=== PATIENT | male | born 1930 | race Caucasian/White ===

== ENCOUNTER 2018-01-11 23:36 | Observation (INO) ==
[2018-01-11] MEDS ORDERED: Naloxone 0.4 MG/ML INJ IVP ONE (23:44)
[2018-01-11] MEDS ORDERED: 0.9 % Sodium Chloride 1,000 ML IVC ONE (23:44)
--- NOTE | 2018-01-11 23:47 | Emergency Department Note ---
Disposition Clinical Impression: Elevated troponin I level Accidental overdose Qualifiers: Encounter type: initial encounter Qualified Code(s): T50.901A - Poisoning by unspecified drugs, medicaments and biological substances, accidental ( unintentional), initial encounter Altered mental status Qualifiers: Altered mental status type: somnolence Qualified Code(s): R40.0 - Somnolence CKD (chronic kidney disease) Qualifiers: Chronic kidney disease stage: stage 3 (moderate) Qualified Code(s): N18.3 - Chronic kidney disease, stage 3 (moderate) Bladder cancer Qualifiers: Bladder location: unspecified site Qualified Code(s): C67.9 - Malignant neoplasm of bladder, unspecified Atrial flutter Qualifiers: Atrial flutter type: typical Qualified Code(s): I48.3 - Typical atrial flutter Disposition: Admitted As Inpatient Condition: Fair Referrals: Simona Ahn MD [Non-Partnered Physician] - Forms: ED Satisfaction Letter Altered Mental Status HPI - General Chief Complaint: ED Altered Mental Status Stated Complaint: Altered mental status Time Seen by Provider: 01/11/18 23:44 Source: patient, family, EMS Mode of arrival: EMS Limitations: physical limitation Nursing Notes Reviewed: Yes Vital Signs Reviewed: Yes - History of Present Illness HPI Narrative: Patient arrives by EMS with a concern for impending sluggish, sleepy and possibly taken too much of his tramadol. He does have history of a bladder cancer with back pain. He states his pain is in the "bottom side", is constant and has been going on for "several days". He does take tramadol for this pain and he had a prescription filled on . The family does but these pills in the pill minder but they noted that there were pills missing from the bottle as well. Patient does not recall taking any extra medication. He denies headache, visual changes, fevers, chills, chest pain or shortness of breath. He denies nausea, vomiting, diarrhea or constipation. He denies any localizing extremity numbness, tingling or weakness. He is alert and oriented and easily able to tell us it is Wednesday, give his name and his social security number. He is, however, sluggish, sleepy, mildly hypotensive and running saturations of 88-92%. He is not on home oxygen. MD complaint: altered mental status, confusion, weakness Onset (ago): day(s) Timing confirmed by: family member Pain Severity: mild, moderate Consistency of Symptoms: constant Context: cancer Associated symptoms: Reports: malaise, weakness. Denies: chest pain, cough, diaphoresis, fever, chills, headaches, loss of appetite, nausea/vomiting, rash, seizure, shortness of breath, syncope, foul smelling urine, diarrhea, incontinence - Related Data Home Medications Medication Instructions Recorded Confirmed Alpha Lipoic Acid 600 mg PO DAILY 07/14/16 01/06/18 B Complex with Vitamin C [Vitamin 1 each PO DAILY 07/14/16 01/06/18 B-Complex & C] Cranberry Fruit Extract [Cranberry] 500 mg PO DAILY 07/14/16 01/06/18 Cyanocobalamin (Vitamin B-12) 5,000 mcg SL DAILY 07/14/16 01/06/18 [Vitamin B-12] Gabapentin [Neurontin] 300 mg PO HS 07/14/16 01/06/18 Garlic 1,000 mg PO DAILY 07/14/16 01/06/18 Ginkgo Biloba 60 mg PO DAILY 07/14/16 01/06/18 Gluc Patino/MSM/Magnesium/Vit C 2 each PO DAILY 07/14/16 01/06/18 [Glucosamine Complex-MSM Cap] Insulin Glargine,Hum.rec.anlog 45 unit SQ HS 07/14/16 01/06/18 [Lantus Solostar] Insulin LISPRO [Humalog] 35 - 40 unit SQ TID 07/14/16 01/06/18 Metoprolol XL (24 HR) Succ [Toprol 37.5 mg PO BID 07/14/16 01/06/18 Xl] Nortriptyline [Pamelor] 25 mg PO HS 07/14/16 01/06/18 Tumeric-Curcumin Complex 1 tab PO DAILY 07/14/16 01/06/18 Vit C/E/Zn/Coppr/Lutein/Zeaxan 2 cap PO DAILY 07/14/16 01/06/18 [Preservision Areds 2 Softgel] Atorvastatin Calcium [Lipitor] 80 mg PO HS 08/11/16 01/06/18 Multivit-Min/Iron Fum/Folic AC 1 each PO DAILY 08/11/16 01/06/18 [Lckfg-Cihgden-Uzjrxxyx Tablet] Enalapril Maleate [Vasotec] 10 mg PO DAILY 11/13/16 01/06/18 Fenofibrate [Lofibra] 160 mg PO DAILY 11/13/16 01/06/18 Ranitidine HCl [Heartburn Relief] 150 mg PO DAILY 11/13/16 01/06/18 Levothyroxine [Levothyroxine 137 mcg PO DAILY@0630 01/22/17 01/06/18 Sodium] Lutein/Zeaxanthin 1 each PO DAILY 01/22/17 01/06/18 [Lutein-Zeaxanthin 25-5 mg Sfgl] Apixaban [Eliquis] 2.5 mg PO BID 07/23/17 01/06/18 Bumetanide [Bumex] 0.5 mg PO DAILY 07/23/17 01/06/18 Acetaminophen [Tylenol Arthritis] 650 mg PO BID 12/07/17 01/06/18 Folic Acid 1 mg PO DAILY 12/07/17 01/06/18 Previous Rx's Medication Instructions Recorded Loperamide [Imodium] 2 mg PO BID PRN #60 capsule 10/16/16 Allergies Allergy/AdvReac Type Severity Reaction Status Date / Time No Known Allergies Allergy Verified 12/19/17 21:47 All systems ED: reviewed and negative except as stated. Past Medical History - Past Medical History Attestation: Yes The following information was validated with the patient. Source: patient, old records reviewed, obtained from family, nursing notes reviewed Medical history: Reports: cancer (Bladder), diabetes, GERD, hyperlipidemia, hypertension, renal disease (CKD - follows with Dr. Agrawal, stage III), thyroid disease, valvular heart disease (Aortic valve replacement on anticoagulation), other (Hard of hearing) Surgical history: Reports: carotid endarterectomy, knee replacement (Bilateral) , orthopedic, other (Back surgery), prostatectomy, vascular surgery (Aortic valve replacement), other (Ureteral stent him a port right upper chest) Psychiatric history: Reports: no psych history - Social History Smoking Status: Never smoker Smokeless Tobacco Status: No Alcohol use: Reports: none Drug use: Reports: none Physical Exam - General Limitations: altered mental status (Sleepy and sluggish.) General appearance: in no apparent distress - Head Head exam: atraumatic, normocephalic, normal inspection - Eye Eye exam: Present: normal appearance, PERRL, EOMI. Absent: scleral icterus, conjunctival injection - ENT ENT exam: normal exam, normal oropharynx, mucous membranes moist - Neck Neck exam: Present: normal inspection, full ROM, trachea midline - Chest Chest inspection: Present: normal inspection, symmetric chest wall rise. Absent : tenderness - Respiratory Respiratory exam: Present: normal lung sounds bilaterally. Absent: respiratory distress, wheezes, prolonged expiratory phase - Cardiovascular Cardiovascular exam: Present: regular rate, normal rhythm, normal heart sounds. Absent: tachycardia - Abdominal Exam Abdominal exam: Present: soft, Non-Tender, normal bowel sounds. Absent: tenderness, distention, guarding, rebound, rigidity - Extremities Exam Extremities exam: Present: normal inspection, full ROM, normal capillary refill. Absent: tenderness, pedal edema - Expanded Lower Extremity Exam Neurovascular/Tendon exam: Present: normal capillary refill. Absent: motor deficit, sensory deficit, tendon deficit Gait: not tested/not observed - Neurological Exam Neurological exam: Present: oriented X3, CN II-XII intact. Absent: alert ( Sleepy), motor sensory deficit - Psychiatric Psychiatric exam: Present: normal mood, flat affect - Skin Skin exam: Present: warm, dry, intact, pallor. Absent: cyanosis, diaphoresis Course Course Narrative: 0020: The patient is alert, smiling and chatting with family after administration of 0.4 mg of Narcan. Family has advised that they were administering his medications to him one half of a 50mg tablet of tramadol at a time because it made him very sleepy. With the bottle being empty they are concerned he could have taken as many as 28 tramadol today. 0055: Patient's presentation and response to treatment have been discussed with Dr. Jean. He is agreeable with observing the patient for the night with continued IV fluids, when necessary Narcan and a repeat troponin in the morning. The family has figured out that his evening medications are still in the dispenser he uses. It appears that he accidentally opened his tramadol bottle and took them instead of his evening medicines. Vital Signs Temperature 97.2 F L 01/11/18 23:45 Pulse Rate 74 01/11/18 23:45 Respiratory Rate 16 01/11/18 23:45 Blood Pressure 90/45 01/11/18 23:45 O2 Sat by Pulse Oximetry 97 01/11/18 23:45 Temperature 97.2 F L 01/11/18 23:45 Pulse Rate 74 01/11/18 23:45 Respiratory Rate 16 01/11/18 23:45 Blood Pressure 90/45 01/11/18 23:45 O2 Sat by Pulse Oximetry 97 01/11/18 23:45 Oxygen Delivery Oxygen Delivery Nasal Cannula Altered Mental Status - Differential Diagnosis Likely: altered mental status, hypoglycemia, hyponatremia, substance use - Medical Records Medical records reviewed: Yes I reviewed the patient's medical records. - Lab Data Lab results reviewed: Yes I reviewed the patient's lab results. Result diagrams: 01/12/18 00:10 01/12/18 00:10 Lab Results 01/12/18 01/12/18 01/12/18 Range/Units 00:10 00:10 00:10 WBC 6.8 (4.3-11.1) K/mcL RBC 2.75 L (4.19-5.50) M/mcL Hgb 9.7 L D (12.9-16.9) g/dL Hct 29.7 L (37.5-50.1) % MCV 108.0 H (83.0-100.0) fL MCH 35.3 H (28.0-33.3) pg MCHC 32.7 (31.6-35.5) g/dL RDW 15.9 H (11.5-14.5) % Plt Count 332 (140-400) K/mcL MPV 9.7 (9.4-12.4) fL Immature Gran % 0.4 (0-4) % Seg Neutrophils % 72.6 % Lymphocytes % 14.1 % Monocytes % 11.3 % Eosinophils % 1.2 % Basophils % 0.4 % Neutrophils # 4.9 (1.6-8.9) K/mcL Lymphocytes # 1.0 (0.6-4.6) K/mcL Monocytes # 0.8 (0.0-1.3) K/mcL Eosinophils # 0.1 (0.0-0.6) K/mcL Basophils # 0.0 (0.0-0.2) K/mcL PT 14.9 H (9.4-12.1) Seconds INR 1.4 APTT 33.9 (26.0-36.0) Seconds Sodium 131 L (136-145) mEq/L Potassium 5.1 (3.5-5.1) mEq/L Chloride 98 (98-107) mEq/L Carbon Dioxide 27 (23-29) mEq/L BUN 84 H (8-23) mg/dL Creatinine 2.08 H (0.70-1.30) mg/dL Est GFR ( Amer) 37 L (> 60) Est GFR (Non-Af Amer) 31 L (> 60) BUN/Creatinine Ratio 40 H (6-26) Glucose 176 H (70-105) mg/dL Calculated Osmolality 302 H (280-300) Calcium 9.0 (8.6-10.3) mg/dL Total Bilirubin 0.4 (0.3-1.0) mg/dL Direct Bilirubin 0.1 (0.0-0.2) mg/dL Indirect Bilirubin 0.3 (0.0-1.2) mg/dL AST 64 H (13-39) Units/L ALT 47 (7-52) Units/L Alkaline Phosphatase 45 (34-104) Units/L Troponin I 0.06 H* (< 0.04) ng/mL Serum Total Protein 7.0 (6.4-8.9) g/dL Albumin 3.0 L (3.5-5.7) g/dL Globulin 4.0 H (2.4-3.5) g/dL Albumin/Globulin Ratio 0.8 L (1.1-2.2) Ethyl Alcohol < 10 H (Less than 10) mg/dL - Radiology Data Radiology results reviewed: Yes I reviewed the patient's radiology results. Single view chest x-ray is performed. This does not demonstrate evidence for infiltrate, effusion, pneumothorax, foreign body or heart failure. The cardiac silhouette is normal. I do not see abnormality to the osseous structures of the chest. This is on my interpretation. Impressions Chest X-Ray 01/11/18 23:44 IMPRESSION: No acute cardiopulmonary abnormality. D/ / Nabor Osborne / Nabor Osborne Interpreting Provider: Nabor Osborne - EKG Data EKG attestation: Yes I reviewed and interpreted this EKG. EKG results narrative: EKG demonstrates an atrial flutter with 4-1 block. Patient is a heart rate of 68, axis of 0, [place] interval of 144 the QT/QTC 399/416. Patient has a poor R- wave progression. He appears to have an intraventricular conduction delay. I do not see evidence for acute ischemia or infarction. This is on my interpretation. Rhythm: A. flutter Interpretation: unchanged when compared to prior tracing (date) (12/19/2017.) TPA Checklist - LKW: 3-4.5 hrs Add. Warnings/Precautions Patient/family understanding: The patient/family members have been counseled and understood the risk, benefit , and alternatives of treatment.
[2018-01-12 00:17] LABS: Basophils % 0.4 %; Eosinophils # 0.1 K/mcL (0.0-0.6); Eosinophils % 1.2 %; Hematocrit 29.7 % (37.5-50.1); Hemoglobin 9.7 g/dL (12.9-16.9); Immature Granulocytes % 0.4 % (0-4); Lymphocytes % 14.1 %; Mean Corpuscular HGB Conc 32.7 g/dL (31.6-35.5); Mean Corpuscular Hemoglobin 35.3 pg (28.0-33.3); Mean Platelet Volume 9.7 fL (9.4-12.4); Monocytes # 0.8 K/mcL (0.0-1.3); Monocytes % 11.3 %; Neutrophils # 4.9 K/mcL (1.6-8.9); Platelet Count 332 K/mcL (140-400); Red Blood Count 2.75 M/mcL (4.19-5.50); Red Cell Distribution Width 15.9 % (11.5-14.5); Segmented Neutrophils % 72.6 %
[2018-01-12 00:23] LABS: INR 1.4; Prothrombin Time 14.9 Seconds (9.4-12.1)
[2018-01-12 00:28] LABS: Activated Partial Thrombo Time 33.9 Seconds (26.0-36.0)
[2018-01-12 00:36] LABS: Alanine Aminotransferase 47 Units/L (7-52); Albumin/Globulin Ratio 0.8 (1.1-2.2); Alkaline Phosphatase 45 Units/L (34-104); Aspartate Amino Transferase 64 Units/L (13-39); BUN/Creatinine Ratio 40 (6-26); Bilirubin,Direct 0.1 mg/dL (0.0-0.2); Bilirubin,Indirect 0.3 mg/dL (0.0-1.2); Bilirubin,Total 0.4 mg/dL (0.3-1.0); Blood Urea Nitrogen 84 mg/dL (8-23); Carbon Dioxide 27 mEq/L (23-29); Chloride 98 mEq/L (98-107); Ethanol < 10 mg/dL (Less than 10); Glucose 176 mg/dL (70-105); Osmolality,Calculated 302 (280-300); Potassium 5.1 mEq/L (3.5-5.1); Sodium 131 mEq/L (136-145); eGFR For African Americans 37 (> 60); eGFR For Non-African Americans 31 (> 60)
[2018-01-12 00:39] LABS: Troponin I 0.06 ng/mL (< 0.04)
[2018-01-12] MEDS ORDERED: D5% in Water 1,000 ML IVC PRN (01:52)
[2018-01-12] MEDS ORDERED: 0.9 % Sodium Chloride 1,000 ML IVC SCH (01:52)
[2018-01-12] MEDS ORDERED: Dextrose Gel 15 GM PO PRN ×2 (01:52)
[2018-01-12] MEDS ORDERED: Naloxone 0.4 MG/ML INJ IVP PRN (01:52)
[2018-01-12] MEDS ORDERED: *HR* Dextrose 50 % in Water (Syg) 50 ML SYRINGE IVP PRN (01:52)
[2018-01-12] MEDS: Insulin LISPRO 300 UNITS/3 ML VIAL SQ SCH ×3 (08:11→16:59)
[2018-01-12 12:08] LABS: Basophils % 0.5 %; Eosinophils # 0.1 K/mcL (0.0-0.6); Eosinophils % 1.8 %; Hematocrit 29.8 % (37.5-50.1); Hemoglobin 9.4 g/dL (12.9-16.9); Immature Granulocytes % 0.6 % (0-4); Lymphocytes # 1.3 K/mcL (0.6-4.6); Lymphocytes % 19.8 %; Mean Corpuscular HGB Conc 31.5 g/dL (31.6-35.5); Mean Corpuscular Hemoglobin 35.6 pg (28.0-33.3); Mean Corpuscular Volume 112.9 fL (83.0-100.0); Mean Platelet Volume 9.4 fL (9.4-12.4); Monocytes # 0.8 K/mcL (0.0-1.3); Monocytes % 11.6 %; Neutrophils # 4.3 K/mcL (1.6-8.9); Platelet Count 288 K/mcL (140-400); Red Blood Count 2.64 M/mcL (4.19-5.50); Red Cell Distribution Width 15.9 % (11.5-14.5); Segmented Neutrophils % 65.7 %
[2018-01-12 12:21] LABS: Calcium 8.6 mg/dL (8.6-10.3)
--- NOTE | 2018-01-12 12:35 | Internal Med History&Physical ---
Date of Encounter: 01/12/18 Time of Encounter: 12:00 Assessment and Plan (1) Accidental overdose Current visit: Yes Status: Acute He received Narcan in emergency room. ABG will be ordered to assess his respiratory status. Qualifiers: Encounter type: initial encounter Qualified Code(s): T50.901A - Poisoning by unspecified drugs, medicaments and biological substances, accidental ( unintentional), initial encounter (2) Anemia Current visit: Yes Status: Acute Acute on chronic. No anemia testing is recorded in archived labs. Qualifiers: Anemia type: unspecified type Qualified Code(s): D64.9 - Anemia, unspecified (3) CKD (chronic kidney disease) Current visit: Yes Status: Acute Now with acute worsening of underlying chronic kidney disease stage III. We will give IV fluids and hold Bumex and enalapril. Qualifiers: Chronic kidney disease stage: stage 3 (moderate) Qualified Code(s): N18.3 - Chronic kidney disease, stage 3 (moderate) (4) Hypertension Current visit: Yes Status: Chronic Will hold cardiovascular medication since he has hypotension. We will give IV fluids and monitor. Qualifiers: Hypertension type: essential hypertension Qualified Code(s): I10 - Essential (primary) hypertension (5) Atrial flutter Current visit: Yes Status: Acute Family reports he is on Eliquis at home. This is not on his home medication list. Qualifiers: Atrial flutter type: typical Qualified Code(s): I48.3 - Typical atrial flutter Internal Medicine - H&P: HPI Chief complaint: Possible overdose Admitted From: Emergency Dept Plans for Post Hospital Care: Home History of present illness: Mr. Walton is a 87 year old male who was noted by family to be lethargic approximate 9 PM the evening of admission. His found his tramadol bottle empty and believes he took between 20 and 30 of his 50 mg pills. The squad was called and he was brought to emergency room and evaluated. He received Narcan and [facility]. His family supplies a history since he is obtunded. Family members state they believe he was simply confused and the ingestion was accidental. He has had no previous suicidal ideations or expressed feelings of depression. He does not take antidepressant medications. There is no other mental health history. Past Med Surg Social Fam HX - Past Medical History Medical history: cancer, diabetes, GERD, hyperlipidemia, hypertension, renal disease, thyroid disease, valvular heart disease, other Psychiatric history: no psych history - Past Surgical History Surgical History: carotid endarterectomy, knee replacement, orthopedic, other, prostatectomy, vascular surgery, other - Social History Smoking Status: Never smoker Smokeless Tobacco Status: No Alcohol use: none Drug use: none - Family History Brother Living Status: Hx Family Cardiac Disorders: Yes Internal Medicine - H&P: Meds Alpha Lipoic Acid 600 mg PO DAILY 07/14/16 [History] B Complex with Vitamin C [Vitamin B-Complex & C] 1 each PO DAILY 07/14/16 [ History] Cranberry Fruit Extract [Cranberry] 500 mg PO DAILY 07/14/16 [History] Cyanocobalamin (Vitamin B-12) [Vitamin B-12] 5,000 mcg SL DAILY 07/14/16 [ History] Gabapentin [Neurontin] 300 mg PO HS 07/14/16 [History] Garlic 1,000 mg PO DAILY 07/14/16 [History] Ginkgo Biloba 60 mg PO DAILY 07/14/16 [History] Gluc Ptaino/MSM/Magnesium/Vit C [Glucosamine Complex-MSM Cap] 2 each PO DAILY [History] Insulin Glargine,Hum.rec.anlog [Lantus Solostar] 40 unit SQ HS 07/14/16 [History ] Insulin LISPRO [Humalog] 35 unit SQ TID 07/14/16 [History] Metoprolol XL (24 HR) Succ [Toprol Xl] 37.5 mg PO BID 07/14/16 [History] Nortriptyline [Pamelor] 25 mg PO HS 07/14/16 [History] Tumeric-Curcumin Complex 1 tab PO DAILY 07/14/16 [History] Vit C/E/Zn/Coppr/Lutein/Zeaxan [Preservision Areds 2 Softgel] 2 cap PO DAILY 04/23 [History] Atorvastatin Calcium [Lipitor] 80 mg PO HS 08/11/16 [History] Multivit-Min/Iron Fum/Folic AC [Xzygb-Mauhvbe-Quzxkzov Tablet] 1 each PO DAILY 08/11/16 [History] Loperamide [Imodium] 2 mg PO BID PRN #60 capsule 10/16/16 [Rx] Enalapril Maleate [Vasotec] 10 mg PO DAILY 11/13/16 [History] Fenofibrate [Lofibra] 160 mg PO DAILY 11/13/16 [History] Ranitidine HCl [Heartburn Relief] 150 mg PO DAILY 11/13/16 [History] Levothyroxine [Levothyroxine Sodium] 125 mcg PO DAILY@0630 01/22/17 [History] Lutein/Zeaxanthin [Lutein-Zeaxanthin 25-5 mg Sfgl] 1 each PO DAILY 01/22/17 [ History] Apixaban [Eliquis] 2.5 mg PO BID 07/23/17 [History] Bumetanide [Bumex] 2 mg PO DAILY 07/23/17 [History] Acetaminophen [Tylenol Arthritis] 650 mg PO BID 12/07/17 [History] Folic Acid 1 mg PO DAILY 12/07/17 [History] 3 Allergy/AdvReac Type Severity Reaction Status Date / Time No Known Allergies Allergy Verified 12/19/17 21:47 All Systems PM: A 10-system review of systems was performed and is negative for pertinent findings except as documented above in the HPI. Review of systems: Gen.: His weight has been stable the past few months Cardiovascular: He has paroxysmal atrial fibrillation and has been prescribed Toprol. He has hypertension. He had aortic valve replacement 2007 for aortic stenosis. There is no history of ID heart failure DVT or pulmonary embolus. Respiratory: He is a lifelong nonsmoker and has no known chronic lung disease. GI: No history of disorders of liver gallbladder or exocrine pancreas : He has chronic kidney disease stage III. He was diagnosed with bladder cancer in 2014 and had surgical resection of tumor followed by XRT. He is now on immunotherapy. He has known recurrence of bladder cancer however. Neurologic: No history of large distribution strokes or seizures. He has diabetic peripheral neuropathy. Endocrine: He was diagnosed with DM 2 approximately 1999. He has hypothyroidism and hyperlipidemia Hematology/oncology: He has bladder cancer as per above. He has had skin cancers. He has anemia. Psychiatric: As per history of present illness [place] skeletal: He has DJD but no known gout or other bone joint or muscle disorders. GI: - Constitutional Vitals: Temp Pulse Resp BP Pulse Ox 97.7 F 62 17 71/31 93 01/12/18 10:10 01/12/18 10:10 01/12/18 10:10 01/12/18 10:10 01/12/18 10:10 Exam: Gen.: He is well-developed well-nourished male lying in bed who is lethargic but awakens and follows a few commands. HEENT: Head is atraumatic and normocephalic. Eyes: EOMI. There is no scleral icterus. Mouth: Mucosa is moist. Neck: Supple and nontender. There is no thyromegaly or adenopathy noted. Heart: Regular without murmurs gallops or ectopics Lungs: No wheezes or crackles are heard. Abdomen: Soft and nontender. No masses or guarding are noted. Extremities: He has 2+ edema of his dorsum of the feet and lower legs bilaterally. Dorsalis pedis and posttibial pulses are nonpalpable. Neurologic: Mental status: He is very lethargic but arouses and attempts to follow a few commands. He cannot give any adequate history. Cranial nerves: Smile is symmetric. Forehead wrinkles bilaterally. Tongue protrudes midline. EOMI. Motor: There is no pronator drift. Cerebellar: Finger to nose maneuver is not well comprehended. No further neurologic testing is attempted. Skin: Warm and dry. Internal Med - H&P Results - Labs CBC & Chem 7: 01/12/18 12:02 01/12/18 12:02 Labs: Short CBC 01/12/18 Range/Units 12:02 WBC 6.6 (4.3-11.1) K/mcL Hgb 9.4 L (12.9-16.9) g/dL Hct 29.8 L (37.5-50.1) % Plt Count 288 (140-400) K/mcL [facility] 01/12/18 12:02 Sodium 137 Potassium 6.0 H Chloride 103 Carbon Dioxide 29 BUN 89 H Creatinine 2.61 H Glucose 98 Calcium 8.6 Cardiac Enzymes 01/12/18 Range/Units 08:30 Troponin I 0.06 H* (< 0.04) ng/mL - VTE Documentation of Mechanical Device: Graduated compression elastic hosiery
[2018-01-12 12:46] LABS: ABG Base Excess -4 mEq/L (-2 to 3); ABG HCO3 24 mEq/L (21-27); ABG Oxygen Saturation 99 % (95-98); ABG PCO2 59 mmHg (35-45); ABG PH 7.23 pH Units (7.32-7.45); ABG PO2 139 mmHg (85-104); ABG TCO2 26 mEq/L (20-26)
[2018-01-12 12:50] LABS: Anisocytosis 1+ (Not Present); Basophilic Stippling 1+ (Not Present); Hypochromasia Present (Not Present); Macrocytosis Present (Not Present)
[2018-01-12 12:51] LABS: Platelet Estimate Normal (Normal); Polychromasia 1+ (Not Present)
[2018-01-12 15:17] LABS: ABG Base Excess -1 mEq/L (-2 to 3); ABG HCO3 26 mEq/L (21-27); ABG Oxygen Saturation 97 % (95-98); ABG PCO2 51 mmHg (35-45); ABG PH 7.31 pH Units (7.32-7.45); ABG PO2 105 mmHg (85-104); ABG TCO2 27 mEq/L (20-26); Blood Gas FiO2 2.5 (1-15=lpm or21-100=%)
--- NOTE | 2018-01-12 20:11 | Electrocardiograph Report ---
[address] [place], [place] [address] Test Date: 2018-01-12 Pat Name: Constantin Walton Department: [id number] Room: [facility] Gender: M Credentialing Manager: [id number] : 1930 Requested By: Harshad Novak Order Number: [id number] Reading MD: Larry Sharma MD Measurements Intervals [place] Rate: 68 P: 78 OK: 144 QRS: 0 QRSD: 124 T: 169 QT: 399 QTc: 416 Interpretive Statements ATRIAL FLUTTER WITH VARIABLE RESPONSE ANTEROSEPTAL MYOCARDIAL INFARCTION, OF INDETERMINATE AGE LATERAL ISCHEMIA BASELINE ARTIFACT COMPLICATES ACCURATE INTERPRETATION Electronically Signed On 01-12-2018 20:10:11 EST by Larry Sharma MD
[2018-01-13 06:31] LABS: Basophils % 0.4 %; Eosinophils # 0.2 K/mcL (0.0-0.6); Eosinophils % 1.8 %; Hematocrit 29.6 % (37.5-50.1); Hemoglobin 9.6 g/dL (12.9-16.9); Immature Granulocytes % 0.6 % (0-4); Lymphocytes # 0.9 K/mcL (0.6-4.6); Lymphocytes % 11.3 %; Mean Corpuscular HGB Conc 32.4 g/dL (31.6-35.5); Mean Corpuscular Hemoglobin 35.6 pg (28.0-33.3); Mean Corpuscular Volume 109.6 fL (83.0-100.0); Mean Platelet Volume 10.2 fL (9.4-12.4); Monocytes # 0.8 K/mcL (0.0-1.3); Monocytes % 9.7 %; Neutrophils # 6.2 K/mcL (1.6-8.9); Platelet Count 308 K/mcL (140-400); Red Cell Distribution Width 15.4 % (11.5-14.5); Segmented Neutrophils % 76.2 %
[2018-01-13 06:48] LABS: Calcium 8.4 mg/dL (8.6-10.3); Magnesium 2.5 mg/dL (1.6-2.6); Potassium 5.2 mEq/L (3.5-5.1)
[2018-01-13 07:02] LABS: Thyroid Stimulating Hormone 5.004 mcIU/mL (0.340-5.600)
[2018-01-13 07:41] VITALS: BP 104/54
[2018-01-13] MEDS: Insulin LISPRO 300 UNITS/3 ML VIAL SQ SCH ×2 (08:34→11:25)
--- NOTE | 2018-01-13 09:47 | Discharge Summary ---
Orders not resulted at time of discharge: Pending orders 01/13/18 05:43 Folate AM 0400 Vitamin B12 AM 0400 Date of Encounter: 01/13/18 Time of Encounter: 09:35 - Discharge Diagnosis (1) Accidental overdose Priority: Primary Status: Resolved Qualifiers: Encounter type: initial encounter Qualified Code(s): T50.901A - Poisoning by unspecified drugs, medicaments and biological substances, accidental ( unintentional), initial encounter (2) Anemia Priority: Secondary Status: Acute Qualifiers: Anemia type: unspecified type Qualified Code(s): D64.9 - Anemia, unspecified (3) CKD (chronic kidney disease) Priority: Secondary Status: Chronic Qualifiers: Chronic kidney disease stage: stage 3 (moderate) Qualified Code(s): N18.3 - Chronic kidney disease, stage 3 (moderate) (4) Hypertension Priority: Secondary Status: Chronic Qualifiers: Hypertension type: essential hypertension Qualified Code(s): I10 - Essential (primary) hypertension (5) Atrial flutter Priority: Secondary Status: Chronic Qualifiers: Atrial flutter type: typical Qualified Code(s): I48.3 - Typical atrial flutter Hospital course: Mr. Walton is a 87 year old male who was noted by family to be lethargic approximate 9 PM the evening of admission. His found his tramadol bottle empty and believes he took between 20 and 30 of his 50 mg pills. The squad was called and he was brought to emergency room and evaluated. He received Narcan and was admitted [facility] floor for ongoing care needs. Initial orders were written by the emergency room physician. I saw him on January 12 and performed a history and physical. He received Narcan in emergency room for the tramadol overdose. An ABG was ordered after his arrival to [facility] floor and showed respiratory insufficiency. He was given additional Narcan and had immediate improvement and remained stable throughout the remainder of his hospital stay. His mental status returned to baseline. He will remain off Ultram at discharge. He had urinary retention of 500 + ml requiring insertion of Sales catheter. He will be started on Flomax and Proscar and be discharged home with a catheter with leg bag for 3 days. Home health services will be arranged and the Sales catheter will be discontinued on January 17. Family was instructed to monitor urine output for possible recurrence of urinary retention. Anemia testing showed iron 66, transferrin saturation 19%, transferrin 242, and ferritin 287. B12 and folate levels are pending at time of discharge. His PCP Dr. Andre can follow-up on this. Kayexalate was given his potassium level decreased to 5.2 by day of discharge. Creatinine was stable at 2.22 on day of discharge. On January 13 I felt he was stable for discharge home. He will follow with his PCP Dr. Andre within 1 week. - Time Spent with Patient Total time spent providing and/or coordinating discharge services: - Discharge Medications Prescriptions: Finasteride [Proscar] 5 mg PO DAILY #7 tablet Tamsulosin [Flomax] 0.4 mg PO DAILY #7 cap.er.24h Home Medications: Alpha Lipoic Acid 600 mg PO DAILY 07/14/16 [History] B Complex with Vitamin C [Vitamin B-Complex & C] 1 each PO DAILY 07/14/16 [ History] Cranberry Fruit Extract [Cranberry] 500 mg PO DAILY 07/14/16 [History] Cyanocobalamin (Vitamin B-12) [Vitamin B-12] 5,000 mcg SL DAILY 07/14/16 [ History] Gabapentin [Neurontin] 300 mg PO HS 07/14/16 [History] Garlic 1,000 mg PO DAILY 07/14/16 [History] Ginkgo Biloba 60 mg PO DAILY 07/14/16 [History] Gluc Patino/MSM/Magnesium/Vit C [Glucosamine Complex-MSM Cap] 2 each PO DAILY [History] Insulin Glargine,Hum.rec.anlog [Lantus Solostar] 40 unit SQ HS 07/14/16 [History ] Insulin LISPRO [Humalog] 35 unit SQ TID 07/14/16 [History] Metoprolol XL (24 HR) Succ [Toprol Xl] 37.5 mg PO BID 07/14/16 [History] Nortriptyline [Pamelor] 25 mg PO HS 07/14/16 [History] Tumeric-Curcumin Complex 1 tab PO DAILY 07/14/16 [History] Vit C/E/Zn/Coppr/Lutein/Zeaxan [Preservision Areds 2 Softgel] 2 cap PO DAILY 04/23 [History] Atorvastatin Calcium [Lipitor] 80 mg PO HS 08/11/16 [History] Multivit-Min/Iron Fum/Folic AC [Uaxua-Ucpctpb-Wqaoezdj Tablet] 1 each PO DAILY 08/11/16 [History] Loperamide [Imodium] 2 mg PO BID PRN #60 capsule 10/16/16 [Rx] Enalapril Maleate [Vasotec] 10 mg PO DAILY 11/13/16 [History] Fenofibrate [Lofibra] 160 mg PO DAILY 11/13/16 [History] Ranitidine HCl [Heartburn Relief] 150 mg PO DAILY 11/13/16 [History] Levothyroxine [Levothyroxine Sodium] 125 mcg PO DAILY@0630 01/22/17 [History] Lutein/Zeaxanthin [Lutein-Zeaxanthin 25-5 mg Sfgl] 1 each PO DAILY 01/22/17 [ History] Apixaban [Eliquis] 2.5 mg PO BID 07/23/17 [History] Bumetanide [Bumex] 2 mg PO DAILY 07/23/17 [History] Acetaminophen [Tylenol Arthritis] 650 mg PO BID 12/07/17 [History] Folic Acid 1 mg PO DAILY 12/07/17 [History] Finasteride [Proscar] 5 mg PO DAILY #7 tablet 01/13/18 [Rx] Tamsulosin [Flomax] 0.4 mg PO DAILY #7 cap.er.24h 01/13/18 [Rx] Allergies/Adverse Reactions: 3 Allergy/AdvReac Type Severity Reaction Status Date / Time No Known Allergies Allergy Verified 12/19/17 21:47 Date of admission: 01/12/18 01:47 Primary care physician: Tim Andre DO Consults: 01/12/18 02:46 Consult to Maintenance Leader [CONS] Routine Reason for SW Consult: Need for home health services for medication setup. - Constitutional Vitals: Temp Pulse Resp BP Pulse Ox 98.6 F 87 17 104/54 100 01/13/18 07:40 01/13/18 07:40 01/13/18 07:40 01/13/18 07:40 01/13/18 07:40 - Patient Status Disposition: Home Health Service Condition: Fair Overall status at discharge: patient is progressing back to baseline - Discharge Instructions Follow Up With: Tim Andre DO [Primary Care Provider] - 1 week - Diet and Activity Activity: resume usual activities as tolerated Diet: advance to your usual diet - VTE Documentation of Mechanical Device: Graduated compression elastic hosiery
--- NOTE | 2018-01-13 09:55 | Physician Discharge Referral ---
Home Health/Hosp Referral Info Transfer to: Home Health Attending Provider: Ted Provider in Charge Post Discharge: PCP (Tim Andre D.O.) - Diagnosis (1) Accidental overdose Priority: Primary Status: Resolved (2) Anemia Priority: Secondary Status: Acute (3) CKD (chronic kidney disease) Priority: Secondary Status: Chronic (4) Hypertension Priority: Secondary Status: Chronic (5) Atrial flutter Priority: Secondary Status: Chronic - Respiratory Orders Smoking Cessation: Smoking cessation has been advised. For more information, call the [place] Tobacco Quit Line at 3-956-DHAL-NOW. - Diet/Nutrition Diet/Nutrition Orders: Regular - Activity Activity Orders: Walker - Services Needed Following services are medically necessary services: Nursing, Home Health Aide, Physical Therapy, Occupational Therapy Home Care Orders: Remove Sales catheter 01/17/2018. Monitor for bladder distention after removal. - Transfer Medications Prescriptions: Finasteride [Proscar] 5 mg PO DAILY #7 tablet Tamsulosin [Flomax] 0.4 mg PO DAILY #7 cap.er.24h Home Medications: Alpha Lipoic Acid 600 mg PO DAILY 07/14/16 [History] B Complex with Vitamin C [Vitamin B-Complex & C] 1 each PO DAILY 07/14/16 [ History] Cranberry Fruit Extract [Cranberry] 500 mg PO DAILY 07/14/16 [History] Cyanocobalamin (Vitamin B-12) [Vitamin B-12] 5,000 mcg SL DAILY 07/14/16 [ History] Gabapentin [Neurontin] 300 mg PO HS 07/14/16 [History] Garlic 1,000 mg PO DAILY 07/14/16 [History] Ginkgo Biloba 60 mg PO DAILY 07/14/16 [History] Gluc Patino/MSM/Magnesium/Vit C [Glucosamine Complex-MSM Cap] 2 each PO DAILY [History] Insulin Glargine,Hum.rec.anlog [Lantus Solostar] 40 unit SQ HS 07/14/16 [History ] Insulin LISPRO [Humalog] 35 unit SQ TID 07/14/16 [History] Metoprolol XL (24 HR) Succ [Toprol Xl] 37.5 mg PO BID 07/14/16 [History] Nortriptyline [Pamelor] 25 mg PO HS 07/14/16 [History] Tumeric-Curcumin Complex 1 tab PO DAILY 07/14/16 [History] Vit C/E/Zn/Coppr/Lutein/Zeaxan [Preservision Areds 2 Softgel] 2 cap PO DAILY 04/23 [History] Atorvastatin Calcium [Lipitor] 80 mg PO HS 08/11/16 [History] Multivit-Min/Iron Fum/Folic AC [Aoqob-Omkqiqj-Pwprjdqw Tablet] 1 each PO DAILY 08/11/16 [History] Loperamide [Imodium] 2 mg PO BID PRN #60 capsule 10/16/16 [Rx] Enalapril Maleate [Vasotec] 10 mg PO DAILY 11/13/16 [History] Fenofibrate [Lofibra] 160 mg PO DAILY 11/13/16 [History] Ranitidine HCl [Heartburn Relief] 150 mg PO DAILY 11/13/16 [History] Levothyroxine [Levothyroxine Sodium] 125 mcg PO DAILY@0630 01/22/17 [History] Lutein/Zeaxanthin [Lutein-Zeaxanthin 25-5 mg Sfgl] 1 each PO DAILY 01/22/17 [ History] Apixaban [Eliquis] 2.5 mg PO BID 07/23/17 [History] Bumetanide [Bumex] 2 mg PO DAILY 07/23/17 [History] Acetaminophen [Tylenol Arthritis] 650 mg PO BID 12/07/17 [History] Folic Acid 1 mg PO DAILY 12/07/17 [History] Finasteride [Proscar] 5 mg PO DAILY #7 tablet 01/13/18 [Rx] Tamsulosin [Flomax] 0.4 mg PO DAILY #7 cap.er.24h 01/13/18 [Rx] Allergies/Adverse Reactions: 3 Allergy/AdvReac Type Severity Reaction Status Date / Time No Known Allergies Allergy Verified 12/19/17 21:47 Certification: Further, I certify that my clinical findings support that this patient is homebound (i.e. absences from home require considerable and taxing effort and are for medical reasons or [employer] [facility] or infrequently or short duration when for other reasons) because: Homebound Reason: Leaving home requires considerable and taxing effort due to condition (Anemia, DJD, confusion) Attestation: My signature below is to certify that this patient is under my care and that I, or nurse practitioner, or a physician's cable splicer assistant working with me, has a face-to -face encounter with this patient.
[2018-01-13 10:09] LABS: Folate > 22.3 ng/mL (3.0-16.0); Vitamin B12 > 1500 pg/mL (250-1100)
[2018-01-13] MEDS ORDERED: Ondansetron ODT 4 MG TAB.RAPDIS SL ONE (12:35)
== END 2018-01-13 13:30 | disposition home health service (06) ==
LOC: EMEROOPIK 23:36 → INPPIK 23:36
PROVIDERS: ADMIT Internal Medicine; ATTEND Internal Medicine